=== PATIENT | male | born 1960 | race Asian ===

== ENCOUNTER → 2024-01-17 14:46 | Outpatient (REF) | payer OTHER, SELFPAY | LOC: HWRCS 14:46 | PROVIDERS: ATTENDING PHYSICIAN Internal Medicine Cardiovascular Disease; FAMILY PHYSICIAN Physician Assistant | DX: I48.3 Typical atrial flutter (principal) | CPT/HCPCS: 93306 ==

== ENCOUNTER → 2024-03-10 10:47 | Day surgery (SDC) | payer OTHER, SELFPAY ==
[2024-03-10 11:34] VITALS: BMI 23.5
== END ==
LOC: CATH 10:47
PROVIDERS: ATTENDING PHYSICIAN Internal Medicine Cardiovascular Disease; FAMILY PHYSICIAN Physician Assistant; OTHER PHYSICIAN Internal Medicine Cardiovascular Disease
DX: I48.92 Unspecified atrial flutter (principal); Z86.19 Personal history of other infectious and parasitic diseases; Z79.01 Long term (current) use of anticoagulants
CPT/HCPCS: 92960; 93005

== ENCOUNTER → 2025-04-14 10:19 | Outpatient (REF) | payer MEDICARE, OTHER, SELFPAY | LOC: RAD 10:19 | PROVIDERS: ATTENDING PHYSICIAN Nurse Practitioner Family | DX: R53.83 Other fatigue (principal); Z86.19 Personal history of other infectious and parasitic diseases; Z00.00 Encounter for general adult medical examination without abnormal findings | CPT/HCPCS: 71046 ==

== ENCOUNTER → 2025-04-16 15:54 | Outpatient (REF) | payer MEDICARE, OTHER, SELFPAY | LOC: HWRCS 15:54 | PROVIDERS: ATTENDING PHYSICIAN Internal Medicine Cardiovascular Disease; FAMILY PHYSICIAN Nurse Practitioner Family | DX: R06.09 Other forms of dyspnea (principal); R93.89 Abnormal findings on diagnostic imaging of other specified body structures | CPT/HCPCS: 93306 ==

== ENCOUNTER 2025-04-17 12:27 | Inpatient (IN) | payer MEDICARE, OTHER, SELFPAY ==
[2025-04-17] VITALS (20 sets, daily range): BP systolic 128–156; BP diastolic 71–88; BMI 24.0; BMI 23.4
[2025-04-17 10:58] LABS: INR 1.27; PT 16.1 Sec (11.4-14.6)
[2025-04-17 10:59] LABS: APTT 37.2 Sec (23.4-35.0)
[2025-04-17 11:03] LABS: Hematocrit 16.7 % (39.0-52.0); Hemoglobin 4.6 g/dL (13.0-18.0); Mean Corp Hgb Conc. 27.5 g/dL (33.0-37.0); Mean Corpuscular Volume 63.5 fL (80.0-94.0); Nucleated Red Blood Cells % 0 % (-); Platelet Count 478 10^3/uL (130-400); Red Cell Dist. Width 18.8 % (11.5-14.5)
[2025-04-17 11:10] LABS: ALT (SGPT) 18 U/L (0-50); AST (SGOT) 21 U/L (17-59); Albumin 4.3 g/dl (3.5-5.0); Alkaline Phosphatase 55 U/L (38-126); Blood Urea Nitrogen 17 mg/dl (9-20); Calcium 8.7 mg/dl (8.4-10.2); Carbon Dioxide 25 mmol/L (22-30); Chloride 105 mmol/L (98-107); Glucose 101 mg/dl (70-99); Potassium 4.0 mmol/L (3.5-5.1); Sodium 137 mmol/L (135-145); Total Protein 7.1 g/dl (6.3-8.2); eGFR > 60.00
--- NOTE | 2025-04-17 11:24 | ED.GENMED ---
History of Present Illness
General
Chief Complaint: Abnormal Lab Value
Source: patient and spouse
Exam Limitations: none
Time Seen by Provider: 04/17/25 11:07
Nursing documentation reviewed up to this point in time: agreed with
History of Present Illness
History of Present Illness:
64-year-old male presents to the emergency department due to fatigue. He had a hemoglobin of 4.6 yesterday and was sent to the emergency department. He has had on and off rectal bleeding. He takes Eliquis. He did not take Eliquis this morning.
He has seen gastroenterology in the past he is on Eliquis for atrial fibrillation. States his stools have looked normal recently.
Past History
Past History
ED Past Medical History: Arrthythmia (Atrial fibrillation)
ED Past Surgical History: Appendectomy
Social History
Tobacco: Non-smoker
Alcohol: None
Drug: None
Personal:
Living: with family
Review of Systems
Review of Systems
Allergies reviewed?: Yes
All Other Systems: Not applicable
Constitutional: Reports fatigue
EENT: Reports no symptoms
Respiratory: Reports trouble breathing
Cardiac: Reports no symptoms
ABD/GI: Reports no symptoms
: Reports bleeding
Musculoskeletal: Reports no symptoms
Skin: Reports no symptoms
Neurological: Reports no symptoms
Endocrine: Reports no symptoms
Hematologic/Lymphatic: Reports no symptoms
Psychiatric: Reports no symptoms
Phy Exam
Physical Exam
Physical Exam:
Physical Exam
General: no apparent distress, not acutely ill
Neck: supple. no meningeal signs. normal posterior pharynx
Heart: s1/s2 regular rate and rhythm, no murmur. equal radial
pulses.
HEENT: Pupils equal round reactive to light, EOMI
Lungs: no acute respiratory distress. clear bilaterally
Abdomen: normal bowel sounds. not tender. no CVAT
Rectal exam: Guaiac negative, hemorrhoids seen.
Neuro: alert and oriented. no focal neurological deficits cranial nerves II through XII intact
Skin: no rash
Psychiatric: well kept. interactive and cooperative
Extremities: no edema. no calf tenderness. negative homans. good distal pulses
Course
Orders/Labs/Results
Orders:
Orders
04/17/25 10:05
Type+Screen Urgent
Complete Blood Count/With Diff Urgent
Comprehensive Metabolic Panel Urgent
PT/INR [Prothrombin Time] Urgent
Is patient on Coumadin/Warfarin?: No
Comment: [email or web address]
PTT Urgent
04/17/25 11:28
Blood Bank Products [* Blood Bank Products] Urgent
Dr's Orders: 2 units prbcs ordered
Blood Bank Products: *Packed RBC Leuko (PRBC's
Quantity: 2
Transfuse Today: Yes
Reason: Anemia
Abnormal Lab Results
04/17/25
10:05
RBC 2.63 L 10^6/uL
(4.70-6.10)
Hgb 4.6 L* g/dL
(13.0-18.0)
Hct 16.7 L* %
(39.0-52.0)
MCV 63.5 L fL
(80.0-94.0)
MCH 17.5 L pg
(27.0-31.0)
MCHC 27.5 L g/dL
(33.0-37.0)
RDW 18.8 H %
(11.5-14.5)
Plt Count 478 H 10^3/uL
(130-400)
Absolute Monos (auto) 0.8 H 10^3/uL
(0.1-0.6)
Monocytes % 13.2 H %
(1.7-9.3)
PT 16.1 H Sec
(11.4-14.6)
APTT 37.2 H Sec
(23.4-35.0)
Glucose 101 H mg/dl
(70-99)
04/17/25 10:05
04/17/25 10:05
Vital Signs
Initial and Last Documented VS:
Initial Vital Signs
Temp Pulse Resp BP Pulse Ox
98.3 F 92 16 136/71 100
04/17/25 09:55 04/17/25 09:55 04/17/25 09:55 04/17/25 09:55 04/17/25 09:55
Last Documented Vital Signs
Temp Pulse Resp BP Pulse Ox
98.3 F 92 16 136/71 100
04/17/25 09:55 04/17/25 09:55 04/17/25 09:55 04/17/25 09:55 04/17/25 11:28
MDM/Problems Addressed
Differential Diagnosis Includes:
Rectal bleeding, anemia of unknown origin
MDM/Problems Addressed:
64-year-old male with anemia, unclear etiology, but microcytic. 2 units packed red blood cells ordered. Admit to hospitalist.
Chronic conditions affecting care: Arrhythmia
Acute Exacerbation and/or Progression of Chronic Illness: Arrhythmia
*Pulse Oximetry
SaO2: 100
Oxygen Mode of Delivery: Room air
Patient hypoxic: no
*Antique Furniture Repairer Interpretation
Rate: Antique Furniture Repairer- N/A
*Critical Care Note
Total Time (30-74mins, 75-104mins- exclusive of procedures): 30
comment:
Critical care statement: A total of 30 minutes of critical care time was provided for this patient. This includes management of unstable vital signs, evaluation of the patient at bedside, reviewing the patient's pertinent medical records, discussion
with consultants, review of old EKGs and review of pertinent medical records. This time with separate from time utilized to perform the aforementioned documented procedures
Data Reviewed
Further Testing Considered But Not Given:
CT abdomen pelvis not indicated
Patient Management
Social determinants of health affecting care: Living situation and Strong social support
Discussion with other providers: Hospitalist
Escalation/DeEscalation of care consider admission/obs:
Admission indicated
ED Attending Note
-
Portions of this chart may have been created with voice recognition software.� Occasional wrong word or��sound alike� substitutions may have occurred due to the inherent limitations of voice recognition software.
Discharge Plan
Departure
Patient Disposition: Admit
Date of Disposition: 04/17/25
Time of Disposition: 11:27
Admit to: Med/Surg
Presentation/result/management discussed w/ accepting MD/DO: Hospitalist
Patient with high blood pressure during this ER visit?: Yes
Condition: Fair
Discharge Problem:
Anemia
Prescriptions:
No Action
calcium 600 mg Capsule
600 mg PO DAILY
metoprolol succinate 50 mg Tablet Extended Release 24 Hr
50 mg PO DAILY
ferrous sulfate [iron] 325 mg (65 mg iron) Tablet
325 mg PO DAILY
cholecalciferol (vitamin D3) [Vitamin D3] 50 mcg (2,000 unit) Tablet
50 mcg PO DAILY
Eliquis 5 mg Tablet
5 mg PO BID
Referrals:
Melanie Keith CRNP [Family Provider, Family Practice]
Interventions
Interventions:
*Neglect/Abuse Screening Last Done: 04/17/25 09:57
*Risk Screen - Suicide (C-SSRS) Last Done: 04/17/25 09:57
Discharge Date and Time
Print Language: INDONESIAN
--- NOTE | 2025-04-17 12:04 | HPS.HSE ---
Addendum entered and electronically signed by Michael Olivo MD 04/17/25 13:21:
Blood consented by ER
Noted 2 PRBCs order
FU Hgb post Tx
Original Note:
Family Physician
-
Family Physician: HUNTER Holt
Chief Complaint
-
Fatigue
History of Present Illness
64M
HX Prx AF on Eliquis
- seen at ER due to fatigue
- OP hemoglobin of 4.6 yesterday and was sent to the emergency department.
- report on and off rectal bleeding
- did not take Eliquis this morning.
- stools have looked normal recently.
Medical History
Past Medical History
Past Medical History: Reports Arrhythmia (Prx AF on Eliquis )
Past Surgical History: Reports Other
Social History
Tobacco: Non-smoker
Alcohol: None
Family History
Family History: Not pertinent
Allergies / Home Medications
Allergies reflects when Allergies were last updated in [facility].
Home Medications with original date entered in [facility]
Allergy/Medication List:
Allergies
Allergy/AdvReac Type Severity Reaction Status Date / Time
No Known Drug Allergies Allergy Unknown Verified 03/10/24 11:01
Home Medications
apixaban 5 mg tablet (Eliquis) 5 mg PO BID 03/10/24
calcium 600 mg capsule 600 mg PO DAILY 03/10/24
cholecalciferol (vitamin D3) 50 mcg (2,000 unit) tablet (Vitamin D3) 50 mcg PO DAILY 03/10/24
ferrous sulfate 325 mg (65 mg iron) tablet (iron) 325 mg PO DAILY 03/10/24
metoprolol succinate 50 mg tablet,extended release 24 hr 50 mg PO DAILY 03/10/24
If medication reconciliation has not been performed, why?: Other (Medication reconciliation pending )
Review of Systems
-
Constitutional: Reports Fatigue
EENT: Reports No Symptoms
Respiratory: Reports No Symptoms
Cardiac: Reports No Symptoms
Abdomen/GI: Reports No Symptoms
: Reports No Symptoms
Musculoskeletal: Reports No Symptoms
Skin: Reports No Symptoms
Neurological: Reports No Symptoms
Endocrine: Reports No Symptoms
Hematologic/Lymphatic: Reports No Symptoms
Psych: Reports No Symptoms
Physical Exam
Vital Signs
Vital Signs
Temp Pulse Resp BP Pulse Ox
98.3 F 92 16 136/71 100
04/17/25 09:55 04/17/25 09:55 04/17/25 09:55 04/17/25 09:55 04/17/25 11:28
Physical Exam
General: Well Developed, Well Nourished and No Apparent Distress
HEENT: NormoCephalic, Moist mucous membranes and Atraumatic
Respiratory: Clear
Cardiac: S1/S2 and Regular Rhythm; No Murmur or Rub
GI: Soft, Non Tender, Non Distended and Normal Bowel Sounds; No Organomegaly
Rectal: Hem Negative (Guaiac negative, hemorrhoids seen per ER attd )
Musculoskeletal: No Clubbing, No Cyanosis and No Edema
Skin: No Rash
Neuro: Nonfocal/grossly intact
Psych: Calm
Laboratory Results
-
04/17/25 10:05
04/17/25 10:05
Laboratory Results
PT 16.1 Sec (11.4-14.6) H 04/17/25 10:05
INR 1.27 04/17/25 10:05
APTT 37.2 Sec (23.4-35.0) H 04/17/25 10:05
Total Bilirubin 1.1 mg/dl (0.2-1.3) 04/17/25 10:05
AST 21 U/L (17-59) 04/17/25 10:05
ALT 18 U/L (0-50) 04/17/25 10:05
Alkaline Phosphatase 55 U/L (38-126) 04/17/25 10:05
Data Reviewed
-
Lab Data: Labs Reviewed by me
Impression/Plan
-
Vital Signs
Temp Pulse Resp BP Pulse Ox
98.3 F 71 16 140/77 100
04/17/25 09:55 04/17/25 12:10 04/17/25 12:10 04/17/25 12:10 04/17/25 12:10
04/17/25
10:05
WBC 5.7
Hgb 4.6 L*
MCV 63.5 L
INR 1.27
Creatinine 0.9
eGFR > 60.00
ASSESSMENT & PLAN
Pending Rx reconciliation
Symptomatic microcytic anemia
- suspect Fe def anemia to intermittent GOB
- No current active GIB
- HD stable
- Hold Eliquis
- IV NS
- Clear
- IV PPI BID
- check Fe studies <( Fe, TIBC, Ferritin)
- GI consult
HX Prx AF
- Hold Eliquis
- c/w Metoprolol - Hold index for SBP < 110 , HR < 60
DVT Px: SCD
Code: Full
TLM
--- NOTE | 2025-04-17 13:03 | CM ---
Chart reviewed.
Spoke with and patient at ED bedside
Lives in 1 SH
Independent with ADLs and ambulation
no DME
Went to [place] earlier this month with
hx of hep C?
PCP Dr. Dusty Laurent
[facility] [address]
no hx of VN nor SNF
DCP is to go home?
can provide transportation at [place]
CM will continue to follow up for any dcp needs
[2025-04-17 13:37] LABS: Total Iron Binding Capacity 437 ug/dl (261-462)
[2025-04-17 13:38] LABS: Iron < 20 ug/dl (49-181)
[2025-04-17 17:01] LABS: Ferritin 3.4 ng/ml (17.9-464.0)
[2025-04-17 17:32] LABS: Folate > 20.0 ng/ml (2.76-20); Vitamin B12 862 pg/ml (239-931)
[2025-04-17 19:41] LABS: Hematocrit 22.4 % (39.0-52.0); Hemoglobin 6.5 g/dL (13.0-18.0)
[2025-04-17] MEDS: NSS (PRESERVATIVE FREE) 10 ML IV (19:50)
[2025-04-17] MEDS: PROTONIX IV 40 MG IV (19:51)
[2025-04-18] VITALS (7 sets, daily range): BP systolic 113–139; BP diastolic 69–89; PULSE 75–82
--- NOTE | 2025-04-18 06:50 | CON.GI ---
Consultation
-
Date/Time Consultation Requested: 04/17/25, 1834
Date/Time Consultation Performed: 04/18/25, 0650
Requesting Provider: HUNTER Brady
Performing Provider: Chris Monteiro DO
Reason for Consultation: Sympatomatic anemia
Medical History
Chief Complaint / HPI
Chief Complaint: Abnormal lab value
History of Present Illness:
Mr. Cobb is a 64 y.o male with a past medical history of colon polyps, A Fib (on eliquis), history of HCV (s/p SVR) and hemorrhoids (s/p prior banding) who presented to the ED after routine blood work demonstrating a Hgb 4.6 and intermittent rectal
bleeding. Found to have heme (-) stool and repeat CBC with Hgb 4.6. GI has been consulted for further evaluation and management.
Patient states he was in his usual state of health until over the past few weeks while he was on vacation when he noticed worsening fatigue, dyspnea on exertion as well as generalized weakness. Denied any fevers, chills or other infectious
symptoms. He followed up with his physicians due to his worsening fatigue where he had outpatient blood work ordered by his printed circuit boards plasma etcher which revealed a hemoglobin of 4.5 over the weekend and was advised to come to the ER for further evaluation.
Of note, previous Hgb normal (14.2) back on 12/2023. He was advised to hold his Eliquis, last dose back on 04/16. Otherwise, he currently reports feeling well this morning other than occasional fatigue. He notes chronic, intermittent small-volume
painless rectal bleeding however notes that this seems to have been improved over the past several months and has not had significant rectal bleeding. Otherwise, he denies any other melena, bloody bowel movements, nausea/vomiting, or unintentional
weight loss. No other epigastric discomfort, dysphagia/odynophagia or other significant symptoms from an upper GI standpoint. Family history significant for colorectal cancer in his father as well as his brother with esophageal cancer. He has never
had a prior EGD and his last colonoscopy is back on 06/2020 where he was found to have 1 small precancerous polyp along with moderately size internal hemorrhoids. Denies any other significant alcohol or NSAID use.
Of note, he was previously seen in the GI office with his primary GI, Dr. Cormier, back on 03/19/2025. He was advised to undergo a colonoscopy given his chronic, intermittent rectal bleeding along with an upper endoscopy given his family history of
esophageal cancer in his brother. Family history also significant for colorectal cancer in his father in his 80s. In regards to his hemorrhoids, this was previously found during a prior colonoscopy and underwent prior banding both with Dr. Jane and
Dr. Mcginnis back on 02/2023 and was felt to be doing better. However, he was still advised to undergo a bidirectional endoscopy for further evaluation which was currently scheduled on 06/04/2025.
Prior colonoscopy (rectal bleeding, BBPS score 9 - Novikov) 06/2020- Impression: 4 mm polyp in transverse colon, removed (path with sessile serrated polyp). Non-bleeding, moderately sized internal hemorrhoids and felt to be source of intermittent
rectal bleeding.
No prior EGD
In the ED, patient was afebrile and HD-stable with HR 90-70s. Labs notable for BUN 17, Nurse Ob 0.9 and normal LFTs. CBC with Hgb 4.6 (unknown baseline) with MCV 63.5, WBC 5.7, and plts 478. Iron studies with ion < 20, iron sat to be calculated due to
low iron, and ferritin 3.4. Patient was started on IV PPI and received 2 uPRBCs with repeat Hgb 4.6 -> 6.5.
Past Medical History
Past Medical History: Other (Colon polyps, A Fib, hemorrhoids, hx of HCV (s/p SVR))
Past Surgical History: Other
Social History
Tobacco: Non-Smoker
Alcohol: None
Drug: None
Family History
Family History: Reviewed & Not Pertinent
Allergies / Home Medications
Allergy/AdvReac Type Severity Reaction Status Date / Time
No Known Drug Allergies Allergy Unknown Verified 03/10/24 11:01
�Medication �Instructions �Recorded
apixaban 5 mg tablet (Eliquis) 5 mg PO BID 03/10/24
calcium 600 mg capsule 600 mg PO DAILY 03/10/24
Review of Systems
-
All other systems: A 12 pt ROS was Negative except as stated above in HPI
Vital Signs
Temp Pulse Resp BP Pulse Ox
98.1 F 75 18 126/77 98
04/18/25 03:47 04/18/25 03:47 04/18/25 03:47 04/18/25 03:47 04/18/25 03:47
Physical Exam
Exam
General: Well Developed, Well Nourished, No Apparent Distress and Comfortable
HEENT: Normocephalic, Anicteric and Moist Mucous Membranes
Respiratory: Non Labored Respirations
GI: Soft, Non Tender and Non Distended
Skin: Warm
Neuro: AO x 3 and Nonfocal/Grossly Intact
Psych: Calm
Results
WBC 5.7 10^3/uL (4.8-10.8) 04/17/25 10:05
Hgb Cancelled 04/18/25 00:34
Hct Cancelled 04/18/25 00:34
MCV 63.5 fL (80.0-94.0) L 04/17/25 10:05
Plt Count 478 10^3/uL (130-400) H 04/17/25 10:05
Absolute Neuts (auto) 3.1 10^3/uL (1.4-6.5) 04/17/25 10:05
PT 16.1 Sec (11.4-14.6) H 04/17/25 10:05
INR 1.27 04/17/25 10:05
APTT 37.2 Sec (23.4-35.0) H 04/17/25 10:05
Sodium 137 mmol/L (135-145) 04/17/25 10:05
Potassium 4.0 mmol/L (3.5-5.1) 04/17/25 10:05
Chloride 105 mmol/L (98-107) 04/17/25 10:05
Carbon Dioxide 25 mmol/L (22-30) 04/17/25 10:05
BUN 17 mg/dl (9-20) 04/17/25 10:05
Creatinine 0.9 mg/dL (0.7-1.3) 04/17/25 10:05
Calcium 8.7 mg/dl (8.4-10.2) 04/17/25 10:05
Total Bilirubin 1.1 mg/dl (0.2-1.3) 04/17/25 10:05
AST 21 U/L (17-59) 04/17/25 10:05
ALT 18 U/L (0-50) 04/17/25 10:05
Alkaline Phosphatase 55 U/L (38-126) 04/17/25 10:05
Diagnostic Image Results: As detailed above
Assessment / Plan
-
Mr. Cobb is a 64 y.o male with a past medical history of colon polyps, A Fib (on eliquis), history of HCV (s/p SVR) and hemorrhoids (s/p prior banding) who presented to the ED after routine blood work demonstrating a Hgb 4.6 and intermittent rectal
bleeding. Found to have heme (-) stool and repeat CBC with Hgb 4.6. GI has been consulted for further evaluation and management.
#Acute, Symptomatic Anemia
#Severe MAXINE
#A Fib (on eliquis, last dose 04/16-)
#Chronic, Intermittent Rectal Bleeding 2/2 #Hemorrhoids
#Hx of Colon Polyp
#Family Hx of CRC and Esophageal Cancer
Impression: Patient presenting to the ED after routine blood work demonstrating hemoglobin of 4.5 (previously 14 back on 12/2023) resulting in significant symptomatic anemia. No signs suggest brisk GI bleeding and furthermore Hemoccult negative in
ED. No prior EGD in the past and last colonoscopy back on 06/2020 which demonstrated a small colon polyp along with moderately sized internal hemorrhoids. He does note chronic, intermittent small-volume rectal bleeding and unclear if this truly
accounts for his severe iron deficiency anemia although he is on Eliquis. Otherwise, he denies any other unintentional weight loss or other alarm symptoms from a GI standpoint. Much less likely malignancy however given his family history he is at
increased risk given family history of both esophageal and CRC. He was previously scheduled to have EGD/colon back on 05/2025 with his primary GI, Dr. Maza. However, given his severe iron deficiency anemia favor pursuing bidirectional endoscopy while
inpatient for further evaluation.
Recommendations:
- Okay for CLD, keep NPO at MN
- Trend Hgb with serial CBC, transfuse for goal Hgb > 7.0
- IV iron while inpatient
- Agree with empiric IV PPI
- Start bowel prep this afternoon
- Plan for EGD and colonoscopy tomorrow, 04/19/2025 for further evaluation of his severe MAXINE
- If this is unremarkable, would consider VCE as outpatient to complete his GI workup given his MAXINE
-Continue to hold Eliquis (last dose 04/16�)
- Monitor for signs of overt GI bleeding while inpatient
- Rest of care as per primary team
GI will continue to follow. Please contact with any questions or concerns.
Data Reviewed
-
Radiology: Image Personally Visualized and interpreted and Report Reviewed by me
Old Records: Reviewed
-
-
Thank you for consultation and allowing me to participate in the patient's care. Please call the online merchandising manager GI physician during the after hours with any questions or concerns.
--- NOTE | 2025-04-18 07:34 | W.PN.HOSP.TC ---
Today's Communication/Plan
-
See plan
Assessment / Plan
Assessment / Plan
Physical Exam
General: Well Developed, Well Nourished and No Apparent Distress
HEENT: Normocephalic, Moist mucous membranes and Atraumatic
Respiratory: Clear
Cardiac: S1/S2 and Regular Rhythm
GI: Soft, Non Tender, Non Distended and Normal Bowel Sounds
Musculoskeletal: No Cyanosis and No Edema
Skin: Warm. Dry.
Neuro: Nonfocal/grossly intact
Psych: Calm
Assessment/Plan
64 y/o male
HX Prx AF on Eliquis
- seen at ER due to fatigue
- OP hemoglobin of 4.6 yesterday and was sent to the emergency department.
- report on and off rectal bleeding
- did not take Eliquis this morning.
- stools have looked normal recently.
Symptomatic microcytic anemia
Iron Deficiency Anemia
- suspect Fe def anemia to intermittent GOB
- No current active GIB
- HD stable
- Hold outpatient Eliquis
- Plan for EGD and colonoscopy tomorrow, 04/19/2025 for further evaluation of his severe MAXINE
- If this is unremarkable, would consider VCE as outpatient to complete his GI workup given his MAXINE
- Clear liquids diet, but NPO after midnight
- Iron studies suggest MAXINE
- Patient received iron via blood transfusions, consider IV iron supplementation
- Protonix IV 40 mg BID
- GI consult
- Activity: Bedrest
HX Prx AF
- Hold Eliquis
- c/w Metoprolol - Hold index for SBP < 110 , HR < 60
DVT Px: SCD
Code: Full
Severe anemia needing several blood transfusions is a high risk encounter.
Anticipated Discharge: > 48 hours
Subjective/Interval History
-
Date of Service: April 18, 2025
Patient was seen and examined. He was doing okay, denied any new symptoms or complaints.
Objective Data
-
Labs:
Laboratory Results
04/17/25 04/18/25 04/18/25
19:24 00:34 07:10
WBC Pending
Hgb 6.5 L* D Cancelled Pending
Hct 22.4 L Cancelled Pending
Plt Count Pending
Sodium Pending
Potassium Pending
Chloride Pending
Carbon Dioxide Pending
BUN Pending
Creatinine Pending
Glucose Pending
Calcium Pending
04/18/25
12:34
WBC
Hgb Pending
Hct Pending
Plt Count
Sodium
Potassium
Chloride
Carbon Dioxide
BUN
Creatinine
Glucose
Calcium
Vital Signs:
Vital Signs
Temp Pulse Resp BP Pulse Ox
98.1 F 75 18 126/77 98
04/18/25 03:47 04/18/25 03:47 04/18/25 03:47 04/18/25 03:47 04/18/25 03:47
I&O
04/17/25 04/18/25 04/19/25
06:59 06:59 06:59
Intake Total 750 / 750
Balance 750 / 750
[2025-04-18 07:37] LABS: Hematocrit 23.9 % (39.0-52.0); Hemoglobin 7.3 g/dL (13.0-18.0); Mean Corp Hgb Conc. 30.5 g/dL (33.0-37.0); Mean Corpuscular Volume 67.7 fL (80.0-94.0); Platelet Count 426 10^3/uL (130-400); Red Cell Dist. Width 21.7 % (11.5-14.5)
[2025-04-18] MEDS: NSS (PRESERVATIVE FREE) 10 ML IV ×2 (07:55→20:03)
[2025-04-18] MEDS: PROTONIX IV 40 MG IV ×2 (07:56→20:03)
[2025-04-18 08:24] LABS: Blood Urea Nitrogen 12 mg/dl (9-20); Calcium 8.5 mg/dl (8.4-10.2); Carbon Dioxide 26 mmol/L (22-30); Chloride 103 mmol/L (98-107); Estimated Creatinine Clearance 82 ml/min; Glucose 84 mg/dl (70-99); Potassium 4.1 mmol/L (3.5-5.1); Sodium 136 mmol/L (135-145); eGFR > 60.00
[2025-04-18 13:02] LABS: Hematocrit 25.2 % (39.0-52.0); Hemoglobin 7.6 g/dL (13.0-18.0)
[2025-04-18] MEDS: DULCOLAX 10 MG PO (15:02)
[2025-04-18] MEDS: NULYTELY SOLUTION 4 LITERS PO (15:03)
[2025-04-18 18:42] LABS: Hematocrit 28.0 % (39.0-52.0); Hemoglobin 8.4 g/dL (13.0-18.0); Mean Corp Hgb Conc. 30.0 g/dL (33.0-37.0); Mean Corpuscular Volume 68.1 fL (80.0-94.0); Platelet Count 467 10^3/uL (130-400); Red Cell Dist. Width 21.9 % (11.5-14.5)
--- NOTE | 2025-04-18 20:11 | PTCARENOTE ---
Pt is self, AAOx3, call sol in reach. Pt refused bed alarm. Pt education provided. Bed locked, in lowest position.
[2025-04-19] VITALS (8 sets, daily range): BP systolic 14–146; BP diastolic 72–88
[2025-04-19] MEDS: PROTONIX IV 40 MG IV (07:47)
[2025-04-19] MEDS: NSS (PRESERVATIVE FREE) 10 ML IV (07:48)
[2025-04-19 07:59] LABS: Hematocrit 27.0 % (39.0-52.0); Hemoglobin 8.0 g/dL (13.0-18.0); Mean Corp Hgb Conc. 29.6 g/dL (33.0-37.0); Mean Corpuscular Volume 69.4 fL (80.0-94.0); Platelet Count 450 10^3/uL (130-400); Red Cell Dist. Width 22.8 % (11.5-14.5)
[2025-04-19 08:53] LABS: Blood Urea Nitrogen 10 mg/dl (9-20); Calcium 8.8 mg/dl (8.4-10.2); Carbon Dioxide 27 mmol/L (22-30); Chloride 104 mmol/L (98-107); Estimated Creatinine Clearance 82 ml/min; Glucose 82 mg/dl (70-99); Potassium 4.1 mmol/L (3.5-5.1); Sodium 136 mmol/L (135-145); eGFR > 60.00
--- NOTE | 2025-04-19 11:20 | W.DS.TRANS ---
DC Summary - Extruding Department Supervisor
-
Discharge Instructions:
Sleep Apnea Risk Intermediate
Discharge Diagnosis/Procedures Iron deficiency anemia, hemorrhoids
Diet Regular
Activity As tolerated
Driving Restrictions No driving for 24 hours
Bathing Restrictions None
Instructions:
Stand-Alone Forms:
Changes to Home Medications: No
Discharge Medications:
DC Medications w/original date entered in [email or web address]
apixaban 5 mg tablet (Eliquis) 5 mg PO BID 03/10/24
calcium 600 mg capsule 600 mg PO DAILY 03/10/24
ferrous sulfate 325 mg (65 mg iron) tablet 325 mg PO Q OTHER DAY #60 tabs 04/19/25
Home Medication Changes
Pending Results: No
--- NOTE | 2025-04-19 12:22 | CM ---
CM met with patient at bedside. He is being discharged hoem today. He is returning home with his . No needs identified. his son will provide transport home. IMM given.
PCP Dr. Dusty Laurent
[facility] [address]
Plan: home today, without needs
--- NOTE | 2025-04-19 13:17 | W.PN.HOSP.TC ---
Today's Communication/Plan
-
Discharge
Assessment / Plan
Assessment / Plan
Gen-AAOx3, NAD
HEENT-NC, AT, anicteric, clear oral mm
Neck-supple
CV-reg, no M, +S1/S2
Lungs-clear B/L
Abd-soft, NT, ND
Ext-no edema
Musculoskeletal-no cyanosis, clubbing
Skin-warm and dry
Neuro-grossly non-focal
Psych-calm, cooperative
Symptomatic anemia -suspected due to occult GI bleed with iron deficiency anemia. Presented to the emergency room with complaints of fatigue.
Hemoglobin improved with 3 units PRBC. Initial hemoglobin 4.6, discharge hemoglobin 8.0.
Symptomatic microcytic anemia
Iron Deficiency Anemia due to slow GI bleed.
Patient underwent EGD and colonoscopy today.
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 Erythematous mucosa in the gastric body and antrum, biopsied.
Colonoscopy showed large external nonthrombosed hemorrhoids.
GI service recommends outpatient video capsule endoscopy, follow-up with Dr. Maza.
Colorectal surgery follow-up as outpatient for hemorrhoids.
Recommend oral iron therapy every other day.
Discontinue further PPI. Spoke with GI service.
Paroxysmal atrial fibrillation
Okay to resume Eliquis tonight as per GI service.
- c/w Metoprolol - Hold index for SBP < 110 , HR < 60
DVT Px: SCD
Full code
Dispo -medically stable for discharge home today. Outpatient follow-up with PCP, GI, colorectal surgery.
32 minutes spent in discharge process.
Anticipated Discharge: Today
Subjective/Interval History
-
Date of Service: April 19, 2025
Patient seen and examined. No complaints.
Objective Data
-
Labs:
Laboratory Results
04/19/25
06:24
WBC 5.7
Hgb 8.0 L
Hct 27.0 L
Plt Count 450 H
Sodium 136
Potassium 4.1
Chloride 104
Carbon Dioxide 27
BUN 10
Creatinine 0.9
Glucose 82
Calcium 8.8
Vital Signs:
Vital Signs
Temp Pulse Resp BP Pulse Ox
97.5 F 73 16 136/81 100
04/19/25 11:46 04/19/25 11:46 04/19/25 11:46 04/19/25 11:46 04/19/25 11:46
I&O
04/18/25 04/19/25 04/20/25
06:59 06:59 06:59
Intake Total 750 / 750 840 / 840
Balance 750 / 750 840 / 840
Review of Systems
-
History Source: Patient
All other systems: Reviewed and negative
[2025-04-19] MEDS: FERRLECIT 110 MG IV (13:44)
== END 2025-04-19 15:28 | disposition home or self-care (01) | DRG 394 ==
LOC: 4 WEST ACU 12:27
PROVIDERS: Hospitalist; Registered Nurse; ADMITTING PHYSICIAN Internal Medicine; ATTENDING PHYSICIAN Hospitalist; CONSULT PHYSICIAN Student in an Organized Health Care Education/Training Program; EMERGENCY PHYSICIAN Emergency Medicine; FAMILY PHYSICIAN Nurse Practitioner Family
PROC: 30233N1 Transfusion of Nonautologous Red Blood Cells into Peripheral Vein, Percutaneous Approach (ICD-10-PCS; 2025-04-17)
PROC: 0DB98ZX Excision of Duodenum, Via Natural or Artificial Opening Endoscopic, Diagnostic (ICD-10-PCS; 2025-04-19)
PROC: 0DJD8ZZ Inspection of Lower Intestinal Tract, Via Natural or Artificial Opening Endoscopic (ICD-10-PCS; 2025-04-19)
PROC: 0DB58ZX Excision of Esophagus, Via Natural or Artificial Opening Endoscopic, Diagnostic (ICD-10-PCS; 2025-04-19)
PROC: 0DB78ZX Excision of Stomach, Pylorus, Via Natural or Artificial Opening Endoscopic, Diagnostic (ICD-10-PCS; 2025-04-19)
DX: K64.4 Residual hemorrhoidal skin tags (principal); D62 Acute posthemorrhagic anemia; D50.9 Iron deficiency anemia, unspecified; I48.0 Paroxysmal atrial fibrillation; K22.70 Barrett's esophagus without dysplasia; K31.89 Other diseases of stomach and duodenum; K63.5 Polyp of colon; K62.89 Other specified diseases of anus and rectum; Z79.01 Long term (current) use of anticoagulants; Z80.0 Family history of malignant neoplasm of digestive organs; Z86.0100 Personal history of colon polyps, unspecified
CPT/HCPCS: 36430; 71046; 80048; 80053; 82607; 82728; 82746; 83540; 83550; 85014; 85018; 85025; 85027; 85610; 85730; 86850; 86900; 86901; 86920; 88305; 88342; 93306; 99291; J2916; P9016